=== PATIENT | male | born 1980 | race Two or more races ===

== ENCOUNTER 2020-12-08 09:52 | Emergency (ER) | payer OTHER ==
[~2020-12-08] VITALS: Ht 165.1 cm; Wt 104.3 kg
[~2020-12-08 09:52] MED LIST: CIPRO500 MG PO; FLONASE16 GM NS; GILTUSS TR TAB1 EACH PO; INDOMETHACIN25 MG PO; M/A; ORPH100T PO; PEPCID AC20 MG PO; TOPROL XL25 M1 PO; ULTRAM50 MG PO; ZYRTEC10 MG PO
[2020-12-08] MEDS ORDERED: NORFLEX100MG PO (11:13)
[2020-12-08] MEDS ORDERED: KETO10TA2 PO (11:13)
== END 2020-12-08 12:17 | disposition home or self-care (01) ==
LOC: ER 09:52
DX: M54.5 Low back pain (principal)

== ENCOUNTER → 2021-02-08 | Outpatient (CLI) | payer OTHER ==
[~2021-02-08] MED LIST changes: +KETO10TA2 PO; +NORFLEX100MG PO
== END | disposition home or self-care (01) ==
LOC: PPH VACUNA 08:00
PROVIDERS: ATTEND Emergency Medicine Pediatric Emergency Medicine
DX: Z23 Encounter for immunization (principal)

== ENCOUNTER 2021-03-17 08:00 | Outpatient (CLI) | payer OTHER | END 2021-03-17 08:30 | disposition home or self-care (01) | LOC: PPH VACUNA 08:00 | PROVIDERS: ATTEND Emergency Medicine Pediatric Emergency Medicine | DX: Z23 Encounter for immunization (principal) ==

== ENCOUNTER 2021-05-11 10:28 | Outpatient (CLI) | payer OTHER | END 2021-05-11 14:43 | disposition home or self-care (01) | LOC: LAB 10:28 | DX: U07.1 COVID-19 (principal) ==

== ENCOUNTER → 2021-08-14 | Emergency (ER) | payer OTHER ==
[~2021-08-14] VITALS: Ht 162.6 cm; Wt 88.5 kg
== END | disposition left against medical advice (07) ==
LOC: ER 10:52
DX: R42 Dizziness and giddiness (principal)

== ENCOUNTER 2021-11-23 08:30 | Outpatient (CLI) | payer OTHER | END 2021-11-23 08:54 | disposition home or self-care (01) | LOC: LAB 08:30 | DX: U07.1 COVID-19 (principal) ==

== ENCOUNTER 2022-01-05 08:05 | Outpatient (CLI) | payer OTHER | END 2022-01-05 08:10 | disposition home or self-care (01) | LOC: PPH VACUNA 08:05 | PROVIDERS: ATTEND Emergency Medicine Pediatric Emergency Medicine | DX: Z23 Encounter for immunization (principal) ==

== ENCOUNTER 2022-01-08 13:44 | Emergency (ER) | payer OTHER ==
[~2022-01-08] VITALS: Ht 175.3 cm; Wt 81.6 kg
== END 2022-01-08 18:20 | disposition home or self-care (01) ==
LOC: ER 13:44
DX: G44.001 Cluster headache syndrome, unspecified, intractable (principal); Z20.822 Contact with and (suspected) exposure to COVID-19; R42 Dizziness and giddiness

== ENCOUNTER 2022-06-13 08:37 | Emergency (ER) | payer OTHER ==
[~2022-06-13] VITALS: Ht 165.1 cm; Wt 99.8 kg
== END 2022-06-13 11:52 | disposition home or self-care (01) ==
LOC: ER 08:37
DX: B34.9 Viral infection, unspecified (principal); Z20.822 Contact with and (suspected) exposure to COVID-19

== ENCOUNTER 2022-08-15 09:57 | Emergency (ER) | payer OTHER ==
[~2022-08-15] VITALS: Ht 165.1 cm; Wt 100.7 kg
== END 2022-08-15 13:30 | disposition home or self-care (01) ==
LOC: ER 09:57
DX: G43.809 Other migraine, not intractable, without status migrainosus (principal); R42 Dizziness and giddiness; Z20.822 Contact with and (suspected) exposure to COVID-19

== ENCOUNTER 2023-01-05 | Outpatient (CLI) | payer OTHER | END 2023-01-05 00:15 | disposition home or self-care (01) | LOC: PPH VACUNA | PROVIDERS: ATTEND Emergency Medicine Pediatric Emergency Medicine | DX: Z23 Encounter for immunization (principal) ==

== ENCOUNTER 2023-04-12 06:34 | Emergency (ER) | payer OTHER ==
[~2023-04-12] VITALS: Ht 165.1 cm; Wt 99.8 kg
[2023-04-12 08:32] LABS: HEMATOCRIT 45.7 % (39.0-48.0); HEMOGLOBIN 15.8 g/dL (13-16.00); MEAN CELL VOLUME 91.6 fL (80.0-100.00); MEAN CORPUSCULAR HEMOGLOBIN 31.6 pg (27.00-32.0); MEAN CORPUSCULAR HGB CONC 34.6 g/dl (32.0-36.0); RED BLOOD COUNT 4.99 M/uL (4.00-6.00); RED CELL DISTRIBUTION WIDTH 13.5 % (11.5-14.5)
[2023-04-12 09:40] LABS: PLATELET COUNT 290 K/uL (150-450)
[2023-04-12 10:40] LABS: PH,URINE 5.5 (5.0-8.0); URINE APPEARANCE Clear; URINE BILIRRUBIN Negative (NEGATIVE); URINE BLOOD Small; URINE COLOR Yellow; URINE GLUCOSE Negative (NEGATIVE); URINE LEUKOCYTE Trace; URINE NITRATE Negative; URINE PROTEIN Negative (NEGATIVE)
[2023-04-12 10:46] LABS: URINE BACTERIA 28.9 uL (0.0-1933); URINE RBC 15.2 uL (0.0-20.8)
[2023-04-12 10:49] LABS: URINE EPITHELIAL CELLS 0.6 uL (0.0-38.8)
== END 2023-04-12 10:14 | disposition home or self-care (01) ==
LOC: ER 06:34
PROVIDERS: General Practice
DX: U07.1 COVID-19 (principal); B34.8 Other viral infections of unspecified site

== ENCOUNTER 2024-02-28 07:50 | Outpatient (CLI) | payer OTHER ==
[~2024-02-28 07:50] MED LIST changes: +PROAIR RESPICL90 MCG IH; +TUSNEL LIQUID178 ML PO; +ZITHROMAX500 MG PO
== END 2024-02-28 08:00 | disposition home or self-care (01) ==
LOC: PPH VACUNA 07:50
PROVIDERS: ATTEND Emergency Medicine Pediatric Emergency Medicine
DX: Z23 Encounter for immunization (principal)